=== PATIENT | male | born 1975 | race Caucasian/White ===

== ENCOUNTER 2016-11-04 06:49 | Outpatient (CLI) | payer OTHER ==
[~2016-11-04] VITALS: Ht 188 cm; Wt 90.7 kg
[~2016-11-04 06:49] MED LIST: ATOR40TA75 PO; CIAL20TA PO; D3-5CAP PO; DICL13PA TD; DICL1GEL3 TD; DRIS50002 PO; GABA-283 PO; LORA1TAB12 PO; LUNE3TAB36 PO; MELO15TA4 PO; MOBI15TA PO; MULTTAB4 PO; TIZA4CAP3 PO; TRAZ-136 PO; VENL150C43 PO; VITA-112 PO; VITA-122 PO
[2016-11-04] MEDS ORDERED: NS 1,000 ML IV ONE (07:15)
[2016-11-04] MEDS ORDERED: PROPOFOL 200 MG/20 ML VIAL As Ordered ONE (07:39)
[2016-11-04] MEDS ORDERED: LIDOCAINE 2% INJ 100 MG/5 ML SDV (FOR ANES.) As Ordered ONE (07:39)
--- NOTE | 2016-11-04 08:04 | ROOR ---
Patient Name: Arnaldo Olivia Procedure Date: 11/04/2016 7:36 AM Date of : 1975 Age: 41 Room: [facility], [facility]IN [facility] Gender: Male Note Status: Finalized Procedure: Colonoscopy Indications: Screening in patient at increased risk: Family history of 1st-degree relative with colorectal cancer Providers: DO Stormy Ayoub MD: JOSIAH RAHMAN MD Requesting Provider: Medicines: Propofol per Anesthesia Complications: No immediate complications. Procedure: Pre-Anesthesia Assessment: - Prior to the procedure, a History and Physical was performed, and patient medications and allergies were reviewed. The patient is competent. The risks and benefits of the procedure and the sedation options and risks were discussed with the patient. All questions were answered and informed consent was obtained. Patient identification and proposed procedure were verified by the physician, the nurse, the anesthesiologist and the lead quality technician in the endoscopy suite. Mental Status Examination: alert and oriented. Airway Examination: normal oropharyngeal airway and neck mobility. Respiratory Examination: clear to auscultation. CV Examination: normal. Prophylactic Antibiotics: The patient does not require prophylactic antibiotics. Prior Anticoagulants: The patient has taken no previous anticoagulant or antiplatelet agents. ASA Grade Assessment: II - A patient with mild systemic disease. After reviewing the risks and benefits, the patient was deemed in satisfactory condition to undergo the procedure. The anesthesia plan was to use monitored anesthesia care (MAC). Immediately prior to administration of medications, the patient was re-assessed for adequacy to receive sedatives. The heart rate, respiratory rate, oxygen saturations, blood pressure, adequacy of pulmonary ventilation, and response to care were monitored throughout the procedure. The physical status of the patient was re-assessed after the procedure. The Colonoscope was introduced through the anus and advanced to the cecum, identified by the appendiceal orifice, ileocecal valve and palpation. The colonoscopy was performed without difficulty. The patient tolerated the procedure well. Findings: The perianal exam findings include internal hemorrhoids (Grade I). The exam was otherwise without abnormality on direct and retroflexion views. Impression: - Internal hemorrhoids (Grade I) found on perianal exam. - The examination was otherwise normal on direct and retroflexion views. - No specimens collected. Recommendation: - Patient has a contact number available for emergencies. The signs and symptoms of potential delayed complications were discussed with the patient. Return to normal activities tomorrow. Written discharge instructions were provided to the patient. - Repeat colonoscopy in 5-10 years for screening purposes. - Return to my office PRN. Charles Zurita DO 11/04/2016 8:04:17 AM This report has been signed electronically. Number of Addenda: 0 Note Initiated On: 11/04/2016 7:36 AM Estimated Blood Loss: Estimated blood loss: none.
[2016-11-04 08:15] VITALS: BP 100/57
== END 2016-11-04 08:39 | disposition home or self-care (01) ==
LOC: M OPP 06:49
PROVIDERS: ATTEND Surgery
DX: Z12.11 Encounter for screening for malignant neoplasm of colon (principal); Z80.0 Family history of malignant neoplasm of digestive organs; K64.0 First degree hemorrhoids; E78.5 Hyperlipidemia, unspecified; M51.9 Unspecified thoracic, thoracolumbar and lumbosacral intervertebral disc disorder; R00.8 Other abnormalities of heart beat; F41.9 Anxiety disorder, unspecified; F32.9 Major depressive disorder, single episode, unspecified; F43.10 Post-traumatic stress disorder, unspecified; G47.00 Insomnia, unspecified; G47.30 Sleep apnea, unspecified; Z87.891 Personal history of nicotine dependence; Z88.8 Allergy status to other drugs, medicaments and biological substances; Z79.899 Other long term (current) drug therapy

== ENCOUNTER → 2016-12-01 | Outpatient (REF) ==
--- NOTE | 2016-12-01 13:02 | REP ---
Chest x-ray: Two views. History: Discogenic disease . Comparison study: April 09, 2015 . Findings: The lungs are well inflated and free of infiltrate. The pleural angles are sharp. The heart size is normal. Pulmonary vasculature is not increased. No significant bony abnormality is seen. There is a minimal dextroconvex thoracic curvature unchanged. Impression: Negative chest x-ray. Signed by Irineo Ambriz MD 12/01/2016 12:54 P
--- NOTE | 2016-12-01 13:16 | REP ---
Cervical spine series: Seven views. History: Discogenic disease. Findings: Cervical vertebral body heights are preserved. Alignment is normal on flexion/extension lateral views. No subluxation or instability is seen. There is minimal disc space narrowing at the C5-6 disc space level. Other disc spaces are preserved. Open-mouth odontoid and AP views are unremarkable. Oblique images demonstrate intact neural foramina at each level on the left and normally aligned facets. On the right, there is minimal uncovertebral hypertrophy at C5-6 and C4-5. No other abnormality. No bony destructive lesion. Impression: Mild degenerative disc changes at C5-6. Right-sided uncovertebral hypertrophy at C5-6 and to a lesser extent C4-5. Signed by Irineo Ambriz MD 12/01/2016 03:52 P
--- NOTE | 2016-12-01 13:17 | REP ---
Lumbar spine series: Five views. History: Discogenic disease. Findings: Lumbar vertebral body heights are preserved. Alignment is normal. Mild disc space narrowing is seen at L4-5. Other disc spaces are maintained. Pedicles and posterior elements are intact. There is no evidence of spondylolysis or spondylolisthesis. Psoas margins are symmetric. Sacrum and SI joints are unremarkable. Impression: Mild disc space narrowing at L4-5. Otherwise negative. Signed by Irineo Ambriz MD 12/01/2016 03:52 P
--- NOTE | 2016-12-01 13:17 | REP ---
Thoracic spine series: Three views. History: Discogenic disease. Findings: Thoracic vertebral body heights are preserved. Mild discogenic spurring is seen throughout the mid and lower thoracic spine levels. Disc spaces are maintained. Alignment is normal. Pedicles and posterior elements are intact. No paravertebral soft-tissue mass or swelling is seen. Impression: Mild discogenic spurring at multiple levels. Otherwise negative. Signed by Irineo Ambriz MD 12/01/2016 03:52 P
== END ==
LOC: M LAB 11:32
PROVIDERS: ATTEND Internal Medicine
DX: M51.9 Unspecified thoracic, thoracolumbar and lumbosacral intervertebral disc disorder (principal)

== ENCOUNTER → 2019-05-03 | Outpatient (CLI) | payer OTHER ==
[~2019-05-03] MED LIST changes: -DRIS50002 PO; +DRIS50003 PO; -GABA-283 PO; +GABA-845 PO; -LORA1TAB12 PO; +LORA1TAB4 PO; +MELO15TA28 PO; -MELO15TA4 PO; +TIZA4CAP PO; -TIZA4CAP3 PO; -TRAZ-136 PO; +TRAZ-257 PO
[2019-05-03 20:25] LABS: BACTERIA, URINE AUTO NEGATIVE (NEGATIVE); RBC, URINE AUTO 10 /HPF (0-3); SQUAMOUS EPITHELIAL CELL UR AU 0 /HPF (0-6); WBC, URINE AUTO 2 /HPF (0-3)
[2019-05-03 20:25] LABS: BASO % 0.2 % (0.0-1.0); EOS % 0.2 % (0.0-3.0); HEMATOCRIT 41.8 % (42.0-52.0); HEMOGLOBIN 13.5 g/dl (13.5-17.5); LYMPH # 1.9 10^3/uL (1.5-5.0); LYMPH % 17.4 % (24.0-44.0); MEAN CORPUSCULAR HEMOGLOBIN 27.7 pg (27.0-33.0); MEAN CORPUSCULAR HGB CONC 32.3 g/dl (32.0-36.5); MEAN CORPUSCULAR VOLUME 85.7 fl (80.0-96.0); MONO % 8.7 % (0.0-5.0); PLATELET COUNT, AUTOMATED 176 10^3/uL (150-450); RED BLOOD COUNT 4.88 10^6/uL (4.30-6.10); WHITE BLOOD COUNT 10.9 10^3/uL (4.0-10.0)
[2019-05-03 20:45] LABS: ALT/SGPT 28 U/L (12-78); BILIRUBIN,TOTAL 0.5 MG/DL (0.2-1.0); BLOOD UREA NITROGEN 11 MG/DL (7-18); CALCIUM LEVEL 8.7 MG/DL (8.5-10.1); CARBON DIOXIDE LEVEL 31 MEQ/L (21-32); CHLORIDE LEVEL 102 MEQ/L (98-107); CREATININE FOR GFR 1.23 MG/DL (0.70-1.30); GLOMERULAR FILTRATION RATE > 60.0 (>60); GLUCOSE, FASTING 144 MG/DL (70-100); POTASSIUM SERUM 3.9 MEQ/L (3.5-5.1); SODIUM LEVEL 137 MEQ/L (136-145); TOTAL PROTEIN 7.3 GM/DL (6.4-8.2)
== END ==
LOC: M WUC 18:51
PROVIDERS: ATTEND Nurse Practitioner Family
DX: R31.9 Hematuria, unspecified (principal)

== ENCOUNTER → 2019-09-04 | Outpatient (CLI) | payer OTHER ==
[~2019-09-04] MED LIST changes: +ISOVUE-370 76% 100ML VIAL As Ordered ONE; +MULT1TAB74 PO; -MULTTAB4 PO
--- NOTE | 2019-09-04 17:16 | REP ---
CT ABDOMEN AND PELVIS WITH AND WITHOUT CONTRAST: (CT UROGRAM) CT abdomen and pelvis performed prior to and following the intravenous administration of 100 mL Isovue 370. Sagittal and coronal 3D MIP reconstruction images are performed. The visualized lung bases are clear. The liver, spleen, adrenals, pancreas and kidneys are unremarkable in appearance. There is no evidence of renal, ureteral or bladder calculus. There is no hydroureteronephrosis. There is no urinary tract mass identified. Urinary bladder is unremarkable. There is no abdominal aortic aneurysm. There is no adenopathy. There is no free air or free fluid. There is no bowel wall thickening. The appendix is normal. No pelvic mass is seen. IMPRESSION: Negative CT abdomen and pelvis with and without contrast. Electronically Signed by Charles Verdugo MD 09/04/2019 07:43 P
== END ==
LOC: M RAD 13:12
PROVIDERS: ATTEND Urology
DX: R31.9 Hematuria, unspecified (principal)
CPT/HCPCS: 74178; Q9967

== ENCOUNTER → 2022-01-31 | Outpatient (REF) | payer OTHER ==
[~2022-01-31] MED LIST changes: +GABA-283 PO; -GABA-845 PO; -ISOVUE-370 76% 100ML VIAL As Ordered ONE
== END ==
LOC: M WUC 19:13
PROVIDERS: ATTEND Physician Assistant
DX: J06.9 Acute upper respiratory infection, unspecified (principal)

== ENCOUNTER 2022-09-09 11:27 | Day surgery (SDC) | payer OTHER ==
[~2022-09-09] VITALS: Ht 188 cm; Wt 70.3 kg
[~2022-09-09 11:27] MED LIST changes: +ASHW300C2 PO; +CVS1CAP2 PO; +GABA-282 PO; +LORA1TAB23 PO; -LORA1TAB4 PO; +NS 1,000 ML IV ONE; +ROSU40TA4 PO; +SERT-141 PO; +VITMTA PO; +[UNRECOGNIZED DRUG - OTHER] PO
[2022-09-09] MEDS ORDERED: propofoL 200 MG/20 ML VIAL As Ordered ONE (13:12)
[2022-09-09] MEDS ORDERED: LIDOCAINE 2% 100MG/5ML SDV (FOR ANES.) As Ordered ONE (13:12)
[2022-09-09 13:32] VITALS: TEMP 97.3
[2022-09-09 13:45] VITALS: BP 100/61; O2SAT 99
== END 2022-09-09 13:57 | disposition home or self-care (01) ==
LOC: M OPP 11:27
PROVIDERS: ATTEND Internal Medicine Gastroenterology
DX: Z12.11 Encounter for screening for malignant neoplasm of colon (principal); Z80.0 Family history of malignant neoplasm of digestive organs; Z87.891 Personal history of nicotine dependence; Z79.02 Long term (current) use of antithrombotics/antiplatelets; Z79.891 Long term (current) use of opiate analgesic; Z79.899 Other long term (current) drug therapy

== ENCOUNTER → 2025-02-28 | Outpatient (CLI) | payer OTHER, MEDICARE ==
[~2025-02-28] MED LIST changes: +DICL100G10 TD; -DICL1GEL3 TD; +GABA-1172 PO; -GABA-282 PO; -GABA-283 PO; +GABA-284 PO; -LUNE3TAB36 PO; +LUNE3TAB50 PO; -NS 1,000 ML IV ONE; -ROSU40TA4 PO; +ROSU40TA81 PO
== END ==
LOC: M SLEEP 20:00
PROVIDERS: ATTEND Registered Nurse
DX: G47.33 Obstructive sleep apnea (adult) (pediatric) (principal)